=== PATIENT | male | born 1950 | race Caucasian/White ===

== ENCOUNTER → 2017-04-18 | Outpatient (CLI) | payer MEDICARE, BC ==
[~2017-04-18] MED LIST: ACETAMINOPHEN PO; ADVIL LIQUI-GE200 MG PO; ASPIRIN; ASPIRIN81 M1 PO; ASPIRIN81 M2 PO; CARDURA2 MG PO; CIPRO PO; CLARITIN10 M2 PO; CLARITIN10 MG; CLARITIN10 MG PO; DOXAZOSIN MESYLA2 MG PO; FLOMAX0.4 M1 PO; FLONASE ALLERG9.9 ML; GLUCOSAMINE1000 MG PO; GLUCOSAMINE500 M1 PO; HYDROCODON-ACE1 EAC7 PO; HYDROXYZINE HCL25 M1 PO; IBUPROFEN400 MG PO; IBUPROFEN600 MG PO; PERCOCET 7.5-31 EACH PO; PRILOSEC PO; PRILOSEC20 M1 PO; PRILOSEC40 MG PO; REGLAN10 MG PO; XARELTO10 MG PO; ZYRTEC10 M2 PO; [UNRECOGNIZED DRUG - CODE]
[2017-04-18 11:30] LABS: HEMATOCRIT 35.8 % (38.0-50.0); HEMOGLOBIN 12.5 gm/dL (13.0-16.0); MEAN CELL VOLUME 95.9 FL (83-96); MEAN CORPUSCULAR HEMOGLOBIN 33.5 PG (28-34); MEAN CORPUSCULAR HGB CONC 34.9 g/dL (30-36); MEAN PLATELET VOLUME 8.1 FL (6.5-11.5); RED BLOOD COUNT 3.73 X10e (3.90-5.60); RED CELL DISTRIBUTION WIDTH 14.8 % (11.0-15.5)
== END | disposition home or self-care (01) ==
LOC: CAMB 10:39
PROVIDERS: Orthopaedic Surgery
DX: Z01.818 Encounter for other preprocedural examination (principal); S82.202 Unspecified fracture of shaft of left tibia; Q66.1 Congenital talipes calcaneovarus
CPT/HCPCS: 36415; 85027; 93005

== ENCOUNTER 2017-04-25 10:33 | Inpatient (IN) | payer MEDICARE, BC ==
--- NOTE | ~2017-04-25 | DS ---
Unit #: [id number] #: [id number] Patient: CHERELLE ABDULLAHI [id number] [address] [place], [place] [address] [id number] I MR#: [id number] NAME: CHERELLE ABDULLAHI ROOM: [facility] Age: 67 Sex: M Admission Date: 04/25/2017 : 1950 Discharge Date: 04/27/2017 Attending Physician: Steven Hood M.D. Primary Care Physician: Leeroy Harry Jr., M.D. DISCHARGE SUMMARY CHIEF COMPLAINT Left leg deformity and ankle pain. HISTORY OF PRESENT ILLNESS This patient is a 67-year-old male who sustained a left distal tibia and fibula fracture at age 19, which was treated in a cast. The patient developed a malunion with significant recurvatum of the distal tibia and fibula measuring about 25 degrees. He also has ankle arthritis. The patient is admitted to undergo osteotomy of these malunions with internal fixation, as well as correction of his preexisting cavovarus foot deformity utilizing a calcaneal osteotomy and first ray osteotomy. HOSPITAL COURSE The patient was taken to the operating room on the date of admission where he underwent left distal tibial shaft and fibula shaft posterior closing wedge osteotomies with lateral displacement calcaneal osteotomy and elevating first ray osteotomy. He had a stable postoperative course. Pain was controlled with IV morphine, THERAPIST PHYS and oral Percocet. He was seen by physical therapy on a daily basis and instructed on how to remain nonweightbearing on his affected side. Dressing was changed on his second postoperative day. Wounds were healing well. Hematocrit was 32.8% on the second postoperative day. Vital signs were stable. DVT prophylaxis was achieved with Xarelto. The patient was discharged in stable condition on the second postoperative day. FINAL DIAGNOSIS 1. 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 2. Left cavovarus foot deformity. 3. Left ankle arthritis. PLAN 1. The patient will be nonweightbearing for 3 months. He will keep the dressing clean, dry and intact. He will continue ice and elevation. 2. Follow up in my office in 2 weeks for dressing change, suture removal and application of a cast. 3. We plan to proceed with total ankle replacement in approximately 6 months once the osteotomies are all healed. 4. Discharge medications remain the same as his home medications with the addition of Xarelto 10 mg p.o. daily for 12 additional days and Percocet 7.5/325 mg 1 or 2 p.o. q.4-6 hours p.r.n. pain. Dictated by.Romelia Hood M.D. Unit #: [id number] #: [id number] Patient: KAYLENRICHARDCHERELLERADHA CHAVEZ/jose roberto TD: 04/28/2017 08:32 JOB #: [id number] DISCHARGE SUMMARY Page 1 of 1 X Verónica Hood MD X DISCHARGE SUMMARY
--- NOTE | ~2017-04-25 | CO ---
Unit #: [id number] #: [id number] Patient: CHERELLE ABDULLAHI [id number] [address] [place], [place] [address] [id number] I MR#: [id number] NAME: CHERELLE ABDULLAHI ROOM: [facility] Age: 67 Sex: M Admission Date: 04/25/2017 : 1950 Attending Physician: Steven Hood M.D. Primary Care Physician: Leeroy Harry Jr., M.D. CONSULTATION REPORT HISTORY OF PRESENT ILLNESS Mr. Abdullahi is a 67-year-old white male, who underwent ankle surgery by Dr. Hood. He underwent left tibial-fibular posterior closing wedge osteotomy, left lateralizing calcaneal osteotomy, and left first metatarsal base dorsal closing wedge osteotomy. He was on a pain pump and became more confused and lethargic and hypoxemic. Supplemental oxygen was added. The pain pump was discontinued, he improved, his saturations normalized on room air. When he was awaken up, he was given oral narcotic twice and became more lethargic and desaturated. We were asked to see for possible obstructive sleep apnea as he has a history of loud snoring. His says he stops breathing at night. He complains of excessive daytime sleepiness. He is a restless sleeper, does not sleep well, awakens frequently. He is morbidly obese and has gained weight recently. PAST MEDICAL HISTORY Significant for GERD, BPH, eczema, and allergic rhinitis. PAST SURGICAL HISTORY Left tib-fib surgery as mentioned. ALLERGIES Meloxicam, diclofenac. HOME MEDICATIONS Aspirin, Zyrtec, Flomax, Prilosec, glucosamine, Flonase, hydroxyzine, and ibuprofen. SOCIAL HISTORY Lives with . No alcohol or tobacco. No illicit drugs. 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 FAMILY HISTORY Diabetes. Mother has COPD. REVIEW OF SYSTEMS Otherwise negative except for HPI. PHYSICAL EXAMINATION GENERAL: White male, morbidly obese, in no distress. VITAL SIGNS: Blood pressure 115/54, pulse 79, respiratory rate 18, temperature 98.9. Height 5 feet 7 inches, weight 224 pounds. HEENT: Normocephalic and atraumatic. Pupils are equal, round, and reactive. Sclerae nonicteric. Nasal passages patent. Posterior pharynx. Mallampati IV. Dentures in place. Unit #: [id number] #: [id number] Patient: CHERELLE ABDULLAHI NECK: Thick, double chin, collar size about 18, trachea midline. LUNGS: Clear to auscultation and percussion. CARDIAC: Regular rate and rhythm. Could not appreciate murmur, rub, or gallop. ABDOMEN: Protuberant, nontender, bowel sounds present. No hepatosplenomegaly. EXTREMITIES: Left leg splint, bandage. No clubbing, cyanosis, or edema. NEUROLOGIC: Awake, alert, and oriented x3. Cranial nerves intact. Muscle strength symmetric bilaterally. PSYCHIATRIC: Affect calm. SKIN: Warm and dry. DIAGNOSTIC STUDIES IMAGING STUDIES: Chest x-ray, no acute infiltrate from the . CT scan of the chest from , no pulmonary embolus. No infiltrate, mass, or congestion. CARDIOVASCULAR STUDIES: EKG; normal sinus rhythm, incomplete right bundle-branch block. IMPRESSION 1. Acute hypoxemic respiratory failure secondary to obstructive sleep apnea hypoventilation secondary to narcotics. 2. Morbid obesity. 3. Postop tib-fib surgery. PLAN Avoid sedatives and narcotics. Outpatient sleep study and treatment for obstructive sleep apnea. Discuss sleep apnea pathophysiology and treatment options in detail. Dictated by... Sarwat Duran/jennifer TD: 04/29/2017 06:09 JOB #: [id number] CONSULTATION REPORT Page 1 of 1 X Fady Abbasi MD X CONSULTATION REPORT
--- NOTE | ~2017-04-25 | HP ---
Unit #: [id number] #: [id number] Patient: CHERELLE ABDULLAHI [id number] [address] [place], [place] [address] [id number] I MR#: [id number] NAME: CHERELLE ABDULLAHI ROOM: [facility] Age: Sex: M Admission Date: 04/25/2017 : 1950 Attending Physician: Steven Hood M.D. Primary Care Physician: Leeroy Harry Jr., M.D. HISTORY AND PHYSICAL DATE OF ADMISSION 1950 CHIEF COMPLAINT Left ankle pain. HISTORY OF PRESENT ILLNESS The patient is a 66-year-old male with a two-year history of increasing left ankle pain. He sustained a tibial shaft fracture at the age of 19 which was treated with a calf. He now has a malunion with recurvatum of the distal tibia. He has tried antiinflammation medication but is allergic to both Mobic and Voltaren. He was an [id number]-etr-ynyldqk ankle brace. He complains of walking on the lateral border of his foot. He has tried injections and bracing without significant relief. He is now to undergo tibial osteotomy in preparation for ankle replacement to be performed approximately six months later. PAST MEDICAL HISTORY 1. Allergic rhinitis. 2. Benign prostatic hypertrophy. 3. Eczema. 4. Gastroesophageal reflux disease. 5. Hyperlipidemia. PAST SURGICAL HISTORY None listed. HOME MEDICATIONS 1. Aspirin. 2. Capzasin cream. 3. Fluticasone. 4. Loratadine. 5. Methylprednisolone. 6. Omeprazole. 7. Tamsulosin. ALLERGIES 1. Diclofenac. 2. Lodine. 3. Meloxicam. SOCIAL HISTORY Patient is a nonsmoker, nondrinker. Unit #: [id number] #: [id number] Patient: CHERELLE ABDULLAHI FAMILY HISTORY COPD, type 2 diabetes, breast cancer, hypertension. REVIEW OF SYSTEMS Unremarkable. PHYSICAL EXAMINATION HEIGHT: 5 feet 7 inches WEIGHT: 220 pounds GENERAL: This is a well-developed, mildly obese male in no acute distress. HEENT: Pharynx is clear. NECK: Supple without masses. HEART: Regular sinus rhythm without murmurs or gallops. LUNGS: Clear. ABDOMEN: Soft and nontender without masses or organomegaly. LEFT FOOT: He has a cavus arch with 10 degrees of hindfoot varus and a positive peek-a-العراقي heel sign. Ankle range of motion is 5 degrees dorsiflexion and 25 degrees plantar flexion. Subtalar range of motion is limited but pain-free. First MTP joint motion is normal. Crepitus is noted in the ankle joint. Pulses are intact. Sensation is normal. Motor exam is normal. DIAGNOSTIC STUDIES IMAGING: Standing x-rays of the left ankle joint demonstrates complete joint space loss of the tibial talar joint with 7 degrees of distal tibial varus and 24 degrees of recurvatum. There is a malunion of the distal tibia 8 cm above the level of the ankle joint. On the lateral view, there is also a malunion of the fibula which will also require osteotomy. IMPRESSION/ADMISSION DIAGNOSES 1. Left distal tibial and fibular malunion. 2. Left cavovarus foot. 3. Left ankle arthritis. PLAN The patient is admitted for posterior closing wedge left distal tibial osteotomy as well as lateralizing calcaneal osteotomy and elevating first metatarsal osteotomy. The fibula will also require an osteotomy. This procedure was described in detail along with risks of bleeding, infection, nerve damage, need for further surgery in the future, prolonged recovery time, deep venous thrombosis, pulmonary embolism, anesthetic complications, nonunion, malunion, need for further surgery in the future which will include ankle replacement in approximately six months. He understands the above risks and agrees to proceed. Dictated by Sarwat Zhu/clement TD: 04/24/2017 20:36 JOB #: [id number] Unit #: [id number] #: [id number] Patient: CHERELLE ABDULLAHI HISTORY AND PHYSICAL Page 1 of 1 X Verónica Hood MD HISTORY AND PHYSICAL
--- NOTE | ~2017-04-25 | CO ---
Unit #: [id number] #: [id number] Patient: CHERELLE ABDULLAHI [id number] [address] [place], [place] [address] [id number] I MR#: [id number] NAME: CHERELLE ABDULLAHI ROOM: [facility] Age: 67 Sex: M Admission Date: 04/25/2017 : 1950 Attending Physician: Steven Hood M.D. Primary Care Physician: Leeroy Harry Jr., M.D. Consultation Date: 04/27/2017 CONSULTATION REPORT REASON FOR CONSULTATION Hypoxia. HISTORY OF PRESENT ILLNESS The patient is a 67-year-old male with a past medical history of GERD, BPH, eczema, allergic rhinitis, who was admitted by Dr. Hood for left tibia fibula surgery. The patient sustained a tibial shaft fracture at the age of 19. He initially saw Dr. Dow. He now has a two-year history of increasing left ankle pain. He saw Dr. Hood who recommended surgery. He will then have ankle replacement in approximately six months. The patient underwent left tibial and fibular posterior closing wedge osteotomies, left lateralizing calcaneal osteotomy and left first metatarsal base dorsal closing wedge osteotomy on 04/25/2017. Postoperatively, he had been doing well and was going to be discharged today. He has had some issues with pain control. Apparently the pain pump was discontinued on the day prior to consultation. He then had severe pain and it was reinitiated. This morning he had both Percocet and FUR BLENDER morphine. He was noted to be quite "groggy" by his around 7:30. She states that the pain pump was then discontinued. He then had 7.5 mg of Percocet at 8 a.m. and subsequently at 2:45. According to my discussion with nursing staff, about 45 minutes later, he was sleeping and oxygen saturation was noted to be 78% on room air. He was arousable at that time. He was placed on 3 liters and oxygen saturation is currently 94%. The patient denies having a history of sleep apnea. He has never been told he has any type of lung problems. He denies any fever. No cough or cold symptoms. No shortness of breath. PAST MEDICAL HISTORY 1. GERD. 2. BPH. 3. Eczema. 4. Allergic rhinitis. PAST SURGICAL HISTORY Left tibia fibula surgery as described above. ALLERGIES 1. Meloxicam. 2. Diclofenac. Unit #: [id number] #: [id number] Patient: CHERELLE ABDULLAHI HOME MEDICATIONS 1. Aspirin 81 mg daily. 2. Zyrtec 10 mg daily. 3. Flomax 0.4 mg b.i.d. 4. Prilosec 40 mg daily. 5. Glucosamine 1000 mg b.i.d. 6. Flonase two sprays daily. 7. Hydroxyzine 25 mg t.i.d. 8. Ibuprofen 600 mg t.i.d. Of note, the patient is currently on 7.5/325 of Percocet q.4-6 h. p.r.n. pain. SOCIAL HISTORY The patient lives with his . There is no tobacco or alcohol use. FAMILY HISTORY Notable for diabetes. His mother had COPD. REVIEW OF SYSTEMS A complete review of systems is negative except as indicated in the HPI. The patient does snore. He states that he wakes up tired. PHYSICAL EXAMINATION VITAL SIGNS: Temperature 98.2, pulse 81, respirations 18, blood pressure 125/74, oxygen saturation is currently 94% on 3 liters but, as stated above, dropped to 78% on room air. GENERAL: The patient is a very pleasant male who is awake and alert in no acute distress. HEENT: Head is atraumatic. Mucous membranes are moist. NECK: Supple. Trachea is midline. LUNGS: Clear to auscultation bilaterally with no increased work of breathing. HEART: Regular rate and rhythm. ABDOMEN: Soft, nontender. Bowel sounds present in all four quadrants. EXTREMITIES: There is an Gregorio bandage about the left lower extremity that is clean, dry and intact. There is no pedal edema involving the right lower extremity. NEUROLOGIC: Patient is awake and alert. He follows commands. PSYCHIATRIC: Mood and affect are normal. Patient is cooperative. SKIN OF EXAMINED AREAS: Warm and dry. DIAGNOSTIC STUDIES LABORATORY: From this morning, hemoglobin was 11.1 and hematocrit was 32.8. CARDIOVASCULAR: EKG from 04/18/2017 showed normal sinus rhythm with a rate of 63 beats per minute. ASSESSMENT The patient is a 67-year-old male with: Acute respiratory failure. I have ordered a chest x-ray as well as an ABG. We will also check CT of the chest PE protocol to rule out PE. I have encouraged incentive spirometry. The patient also has risk factors for sleep apnea. I have encouraged him to get a sleep study as an outpatient. Thank you very much for the consultation. We will follow the patient along closely with you. Unit #: [id number] #: [id number] Patient: CHERELLE ABDULLAHI Dictated by... Sarwat Echols/clement TD: 04/27/2017 21:04 JOB #: [id number] CONSULTATION REPORT Page 1 of 1 X Allyn Diaz MD X CONSULTATION REPORT
--- NOTE | ~2017-04-25 | CR72 ---
[facility] A Service of [facility] RADIOLOGY TEXT RESULTS PATIENT: CHERELLE ABDULLAHI LOCATION: [facility] 448-01 : [birth year] UNIT #: [id number] AGE: [address]: Verónica Hood MD SEX: M ORDER DR: [id number] [facility] [address] [place], [place] [address] [id number] I MR#: [id number] Acc #: [id number] NAME: CHERELLE ABDULLAHI : 1950 SEX: M STUDY DATE/TIME: 04/27/2017 17:04 UNIT: [facility] ROOM: [facility] STUDY DESCRIPTION: CR Chest Single View Portable Attending Physician: Steven Hood M.D. Ordering Physician: Allyn Diaz M.D. Primary Care Physician: Leeroy Harry Jr., M.D. MEDICAL IMAGING REPORT This report is preliminary unless electronic signature is present EXAM Portable chest HISTORY Hypoxia with shortness of breath for the past 2 days. TECHNIQUE Single view of the chest was obtained and compared with 12/06/2016. FINDINGS A single AP portable view of the chest shows both lungs to be clear. The heart is normal in size. The mediastinal contour is normal. No significant bone abnormalities are seen. IMPRESSION Normal portable chest. Dictated by... Satya Capone M.D. THIS IS AN ELECTRONICALLY VERIFIED REPORT Satya Capone M.D. at 05/03/2017 7:10 AM RLF/mor TD: 04/27/2017 23:12 JOB #: [id number] MEDICAL IMAGING REPORT Page 1 of 1 COPY
--- NOTE | ~2017-04-25 | CT16 ---
[facility] A Service of [facility] RADIOLOGY TEXT RESULTS PATIENT: CHERELLE ABDULLAHI LOCATION: [facility] 448 : [birth year] UNIT #: [id number] AGE: [address]: Veróncia Hood MD SEX: M ORDER DR: [id number] [place] [id number] [facility]. [place], [place] [address] [id number] I MR#: [id number] Acc #: [id number] NAME: CHERELLE ABDULLAHI : 1950 SEX: M STUDY DATE/TIME: 04/27/2017 20:42 UNIT: [facility] ROOM: [facility] STUDY DESCRIPTION: CT Angio Chest for PE Attending Physician: Steven Hood M.D. Ordering Physician: Allyn Diaz M.D. Primary Care Physician: Leeroy Harry Jr., M.D. MEDICAL IMAGING REPORT This report is preliminary unless electronic signature is present EXAM CT chest PE protocol HISTORY 67-year-old male postop with hypoxia, recent orthopedic surgery. This CT exam was performed with one or more of the following radiation dose reduction techniques: automatic exposure control, adjustment of mA and/or kV according to patient size, and iterative reconstruction. FINDINGS Axial images performed through the chest following IV contrast. Initial attempt revealed a nondiagnostic study. The patient was redosed and rescanned with improved visualization of the pulmonary vessels. Pulmonary parenchyma unremarkable. No effusions or infiltrates. Trachea and bronchi unremarkable. Normal enhancement of the pulmonary arteries, no evidence of embolus. Aorta free of dissection or aneurysm. Heart size within normal limits. Coronary artery calcifications noted. Upper abdomen remarkable for cholelithiasis but no CT evidence of acute cholecystitis. Low-attenuation lesion right lobe of the liver probably represents a cyst. Thoracic spine and thoracic inlet unremarkable. IMPRESSION 1. No acute intrathoracic abnormality identified. 2. Uncomplicated cholelithiasis. Dictated by... Pranay Jurado M.D. [facility] A Service of [facility] RADIOLOGY TEXT RESULTS PATIENT: CHERELLE ABDULLAHI LOCATION: [facility] 01 : [birth year] UNIT #: [id number] AGE: [address]: Verónica Hood MD SEX: M ORDER DR: THIS IS AN ELECTRONICALLY VERIFIED REPORT Pranay Jurado M.D. at 04/28/2017 10:11 AM Rody TD: 04/28/2017 03:20 JOB #: [id number] MEDICAL IMAGING REPORT Page 1 of 1 COPY
--- NOTE | ~2017-04-25 | OR ---
Unit #: [id number] #: [id number] Patient: CHERELLE ABDULLAHI [id number] [address] [place], [place] [address] [id number] MR#: [id number] NAME: CHERELLE ABDULLAHI ROOM: [facility] Date of Procedure: 04/25/2017 Admission Date: 04/25/2017 Surgeon: Steven Hood M.D. : 1950 Attending Physician: Steven Hood M.D. Primary Care Physician: Leeroy Harry Jr., M.D. OPERATIVE REPORT PREOPERATIVE DIAGNOSES 1. Left tibial and fibular malunion. 2. Left cavovarus foot. 3. Left ankle arthritis. POSTOPERATIVE DIAGNOSES 1. Left tibial and fibular malunion. 2. Left cavovarus foot. 3. Left ankle arthritis. PROCEDURES PERFORMED 1. Left tibial and fibular posterior closing wedge osteotomies (57900). 2. Left lateralizing calcaneal osteotomy (27266). 3. Left first metatarsal base dorsal closing wedge osteotomy (83290). ASSISTANTS MD Marv; VIVIEN Ackerman; and VIVIEN Perez. ANESTHESIA Popliteal saphenous block and general. INDICATIONS FOR SURGERY The patient is a 67-year-old male, who sustained a left distal tibial and fibular shaft fractures approximately 40 years ago treated in a cast. 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 He has pre-existing cavovarus foot with varus heel. He is therefore to undergo realignment osteotomies of the tibial and fibular shafts, lateralizing osteotomy of the calcaneus, and elevating osteotomy of the first metatarsal to correct his cavus deformity. DESCRIPTION OF PROCEDURE The patient underwent left leg popliteal saphenous block. He was then taken to the operating room and placed in supine position and general anesthetic was induced. The left leg was identified as the correct operative extremity during the time-out procedure. The IV antibiotic protocol was followed. The left leg was then prepped and draped in the usual sterile fashion. The leg was exsanguinated and the thigh tourniquet inflated to 300 mmHg. A midline longitudinal incision was made over the tibial shaft measuring 15 cm ending just before the ankle joint distally. The superficial peroneal nerve was identified and preserved. The osteotomy site was Unit #: [id number] #: [id number] Patient: CHERELLE ABDULLAHI identified with mini C-arm fluoroscopy. Two diverging K-wires were then drilled in line with perpendicular to the proximal and distal shaft fragments of the tibia. These K-wires were used as a guides for the osteotomy cuts. The tibia was exposed with subperiosteal dissection. Hohmann retractors were placed. The sagittal saw was then used to fashion an 8 mm posterior closing wedge osteotomy of the tibial shaft through the malunion site. A longitudinal incision was then made over the distal fibular shaft at the level of the malunion. The superficial peroneal nerve was identified and preserved. The peroneal musculature was retracted posteriorly. The malunion site was exposed with subperiosteal dissection. Baby Hohmann retractors were placed. The microsagittal saw was then used to fashion a 5 mm posterior closing wedge osteotomy of the malunion site. The osteotomies were then closed and the deformity was corrected. A [employer] [place] Plate was then applied anteriorly to the tibia and fixated with multiple 3.5 mm diameter cortical screws. A 6-hole third tubular plate was then applied over the fibular osteotomy and fixated with multiple 3.5 mm diameter cortical screws. Because I was still concerned that there was a tendency toward motion at the malunion site of the tibia, a 5-hole DCP plate was applied medially and fixated with four 3.5 mm diameter cortical screws. It should be noted that because of my concerns of delayed union of the osteotomy site of the tibia, two collagen sponges soaked in Infuse bone morphogenic protein were placed into the osteotomy site of the tibia prior to placement of the plate. The tibia was then roughened and singled around the osteotomy site. An additional bone graft which had been taken from the cut piece of tibia was morselized and placed around the osteotomy site. A 5 cm oblique lateral incision was made over the lateral calcaneus posterior to the peroneal tendons. The lateral calcaneus was exposed subperiosteally. Baby Hohmann retractors were placed. A 5 mm lateral closing wedge Matute osteotomy was then performed with the microsagittal saw. The wedge of bone was removed and the osteotomy was closed and the calcaneus was translated laterally. The calcaneal osteotomy was fixated with two 4.0 mm diameter cannulated cancellous screws placed from posterior to anterior. Excellent fixation was achieved. This piece of calcaneus was morselized and again placed around the osteotomy site of the tibia. A dorsal longitudinal incision was made over the first metatarsal base. Subcutaneous tissue was divided. The extensor hallucis longus tendon was retracted. A 3 mm dorsal closing wedge osteotomy was then performed at the base of the first metatarsal 1.5 cm distal to the first tarsometatarsal joint. The wedge of bone was removed and the osteotomy was closed. Therefore, correcting the cavus deformity. A [employer] 4.0 mm diameter cancellous screw was then placed in the proximal fragment and an 18-gauge wire was placed through a transverse hole in the distal fragment and placed in a [id number] fashion around the head of the screw. The wire was then twisted on itself and then tightened with a large wire galvanizer. The wire was then cut and bent to lie closely to the surface of the proximal first metatarsal. Excellent fixation was achieved. The foot wound was irrigated and the lateral wound was irrigated, but the tibia wound was not irrigated because of the infuse bone morphogenic protein. Unit #: [id number] #: [id number] Patient: CHERELLE ABDULLAHI The tourniquet was released with a total tourniquet time of 2 hours 10 minutes. The deep tissues were closed with 2-0 Vicryl sutures. The subcutaneous tissue was closed with 3-0 Vicryl and the skin was closed with interrupted 3-0 nylon horizontal mattress sutures. Xeroform gauze, dressing, sponges, Webril, and a posterior fiberglass splint were applied. The patient was then transported to the recovery room in stable condition. ESTIMATED BLOOD LOSS 200 mL. COMPLICATIONS None. SPECIMENS None. TOURNIQUET TIME 2 hours 10 minutes. Dictated bySarwat Fatima/jennifer TD: 04/26/2017 07:15 JOB #: [id number] OPERATIVE REPORT Page 1 of 1 X Verónica Hood MD PROCEDURE OPERATIVE NOTE
[~2017-04-25 10:33] MED LIST changes: -ACETAMINOPHEN PO; -PERCOCET 7.5-31 EACH PO; -XARELTO10 MG PO
[2017-04-26 04:28] LABS: HEMATOCRIT 33.8 % (38.0-50.0); HEMOGLOBIN 11.5 gm/dL (13.0-16.0)
[2017-04-27 04:41] LABS: HEMATOCRIT 32.8 % (38.0-50.0); HEMOGLOBIN 11.1 gm/dL (13.0-16.0)
[2017-04-27] MEDS ORDERED: XARELTO10 MG PO (15:08)
[2017-04-27] MEDS ORDERED: PERCOCET 7.5-31 EACH PO (15:12)
[2017-04-27 17:07] LABS: ARTERIAL BLOOD GAS PCO2 48.7 mmHg (35.0-45.0); ARTERIAL BLOOD GAS PO2 66.6 mmHg (80.0-100); ARTERIAL BLOOD GAS pH 7.397 (7.350-7.450)
[2017-04-27 17:08] LABS: ARTERIAL BLD GAS O2 SATURATION 95.1 % (90.0-100.0); ARTERIAL BLOOD GAS ALLEN TEST NORMAL; ARTERIAL BLOOD GAS ART SITE RIGHT RADIAL; ARTERIAL BLOOD GAS CARBOXY HB 4.5 %sat (0.0-9.0); ARTERIAL BLOOD GAS DELIVERY NASAL CANNULA; ARTERIAL BLOOD GAS MET HB 0.5 %sat (0.0-2.0); ARTERIAL DRAW? YES
[2017-04-27 19:06] LABS: BUN/CREATININE RATIO 16.66; CALCIUM SERUM 8.3 mg/dL (8.4-10.2); CREATININE SERUM 0.9 mg/dL (0.6-1.4); GLOM FILT RATE Estimated 86.8 mL/min (>60); POTASSIUM 4.1 mmol/L (3.5-5.1)
[2017-04-28 08:20] LABS: BASOPHIL# 0.1 X10e3 (0-0.3); BASOPHIL% 1.1 % (0-2.5); EOSINOPHIL# 0.5 X10e3 (0-0.7); EOSINOPHIL% 4.5 % (0.0-7.0); HEMATOCRIT 27.8 % (38.0-50.0); HEMOGLOBIN 9.6 gm/dL (13.0-16.0); LYMPHOCYTE# 1.3 X10e3 (1.0-3.5); LYMPHOCYTE% 10.8 % (17.0-45.0); MEAN CELL VOLUME 96.1 FL (83-96); MEAN CORPUSCULAR HEMOGLOBIN 33.2 PG (28-34); MEAN CORPUSCULAR HGB CONC 34.5 g/dL (30-36); MEAN PLATELET VOLUME 7.6 FL (6.5-11.5); MONOCYTE# 1.3 X10e3 (0-1.0); MONOCYTE% 10.4 % (3.0-12.0); NEUTROPHIL# 8.9 X10e3 (1.5-7.1); NEUTROPHIL% 73.2 % (40-75); PLATELET COUNT 361 X10e3 (140-420); RED BLOOD COUNT 2.89 X10e (3.90-5.60); RED CELL DISTRIBUTION WIDTH 14.9 % (11.0-15.5); WHITE BLOOD COUNT 12.2 X10e3 (4.0-10.5)
[2017-04-28 08:30] LABS: DIFF IND NO
[2017-04-28 08:43] LABS: ALBUMIN SERUM 3.5 g/dL (3.5-5.0); BILIRUBIN,TOTAL 2.6 mg/dL (0.2-2.0); BUN/CREATININE RATIO 12.22; CREATININE SERUM 0.9 mg/dL (0.6-1.4); GLOM FILT RATE Estimated 86.8 mL/min (>60); PROTEIN TOTAL SERUM 6.3 g/dL (6.0-8.3)
[2017-04-28] MEDS ORDERED: ACETAMINOPHEN PO (16:57)
== END 2017-04-28 17:45 | disposition home or self-care (01) | DRG 492 ==
LOC: CSUR 10:33 → CPACUOF 11:26 → CSUR 11:26 → C4B 11:26 → CSUR 13:30 → CPACUOF 15:35 → C4B 17:04 → CPACUOF 17:04 → C4B 04-28 17:45
PROVIDERS: Family Medicine; Orthopaedic Surgery
PROC: 0QBH0ZZ Excision of Left Tibia, Open Approach (ICD-10-PCS; 2017-04-25)
PROC: 0QHP04Z Insertion of Internal Fixation Device into Left Metatarsal, Open Approach (ICD-10-PCS; 2017-04-25)
PROC: 0QHH04Z Insertion of Internal Fixation Device into Left Tibia, Open Approach (ICD-10-PCS; 2017-04-25)
PROC: 0QHM04Z Insertion of Internal Fixation Device into Left Tarsal, Open Approach (ICD-10-PCS; 2017-04-25)
PROC: 0QHK04Z Insertion of Internal Fixation Device into Left Fibula, Open Approach (ICD-10-PCS; 2017-04-25)
PROC: 3E0V0GB Introduction of Recombinant Bone Morphogenetic Protein into Bones, Open Approach (ICD-10-PCS; 2017-04-25)
PROC: 0QBK0ZZ Excision of Left Fibula, Open Approach (ICD-10-PCS; principal; 2017-04-25 13:30)
PROC: 0QBP0ZZ Excision of Left Metatarsal, Open Approach (ICD-10-PCS; 2017-04-25 13:30)
PROC: 0QBM0ZZ Excision of Left Tarsal, Open Approach (ICD-10-PCS; 2017-04-25 13:30)
DX: S82.302 Unspecified fracture of lower end of left tibia (principal); J96.01 Acute respiratory failure with hypoxia; E66.2 Morbid (severe) obesity with alveolar hypoventilation; D62 Acute posthemorrhagic anemia; M19.90 Unspecified osteoarthritis, unspecified site; S82.402P Unspecified fracture of shaft of left fibula, subsequent encounter for closed fracture with malunion; M21.962 Unspecified acquired deformity of left lower leg; K21.9 Gastro-esophageal reflux disease without esophagitis; Z68.35 Body mass index [BMI] 35.0-35.9, adult; N40.0 Benign prostatic hyperplasia without lower urinary tract symptoms; J30.9 Allergic rhinitis, unspecified; Z83.3 Family history of diabetes mellitus; L30.9 Dermatitis, unspecified; E78.5 Hyperlipidemia, unspecified; Z79.82 Long term (current) use of aspirin; Z88.8 Allergy status to other drugs, medicaments and biological substances; Z80.3 Family history of malignant neoplasm of breast; Z82.49 Family history of ischemic heart disease and other diseases of the circulatory system; T40.2X5A Adverse effect of other opioids, initial encounter
CPT/HCPCS: 36600; 71010; 71275; 80048; 80053; 82803; 85014; 85018; 85025; 94010; 94760; 94761; 94762; 97116; 97161; 97530; C1713; G8978-GP; G8979-GP; G8980-GP; J0690; J1100; J1170; J2250; J2270; J2405; J2795; J3010; Q9967